=== PATIENT | female | born 1985 | race Two or more races ===

== ENCOUNTER 2019-09-28 08:26 | Outpatient (CLI) | payer OTHER | END 2019-09-28 08:33 | disposition home or self-care (01) | LOC: MAMO-SONO 08:26 | DX: Z12.31 Encounter for screening mammogram for malignant neoplasm of breast (principal); Z87.898 Personal history of other specified conditions; N60.11 Diffuse cystic mastopathy of right breast ==

== ENCOUNTER 2021-03-05 14:51 | Outpatient (CLI) | payer OTHER | END 2021-03-05 15:07 | disposition home or self-care (01) | LOC: RAD 14:51 → MAMO-SONO 15:00 → RAD 15:07 | DX: R22.1 Localized swelling, mass and lump, neck (principal); R07.89 Other chest pain ==

== ENCOUNTER 2021-04-18 08:00 | Outpatient (CLI) | payer OTHER | END 2021-04-18 08:30 | disposition home or self-care (01) | LOC: PPH VACUNA 08:00 | PROVIDERS: ATTEND Emergency Medicine Pediatric Emergency Medicine | DX: Z23 Encounter for immunization (principal) ==

== ENCOUNTER 2022-04-07 10:55 | Outpatient (CLI) | payer OTHER | END 2022-04-07 11:03 | disposition home or self-care (01) | LOC: RAD 10:55 | PROVIDERS: ATTEND Physical Medicine & Rehabilitation | DX: S40.011A Contusion of right shoulder, initial encounter (principal); W19.XXXA Unspecified fall, initial encounter ==

== ENCOUNTER 2025-05-08 10:49 | Outpatient (CLI) | payer OTHER | END 2025-05-08 11:01 | disposition home or self-care (01) | LOC: MAMO-SONO 10:49 | DX: N64.4 Mastodynia (principal); Z80.3 Family history of malignant neoplasm of breast ==